=== PATIENT | female | born 1960 | race Caucasian/White ===

== ENCOUNTER 2017-07-27 22:54 | Inpatient (IN) | payer MEDICARE, OTHER ==
[~2017-07-27] VITALS: Ht 157.5 cm; Wt 51.2 kg
[~2017-07-27 22:54] MED LIST: ASPIRIN; BUSPIRONE; PEPCID
[2017-07-27] MEDS ORDERED: SODIUM CHLORIDE 0.9% 1,000ML IVBOLUS ONE (23:00)
[2017-07-27] MEDS ORDERED: LORazepam 2 MG/ML, 1ML IVPush ONE ×2 (23:00)
[2017-07-27] MEDS ORDERED: HALO0.5T PO (23:18)
[2017-07-27] MEDS ORDERED: FILTER 0.22 MICRON IV ONE (23:45)
[2017-07-28] MEDS ORDERED: PHENYTOIN SODIUM 1,000 MG in SODIUM CHLORIDE 0.9% 100 ML IV ONE
[2017-07-28] MEDS ORDERED: LORazepam 2 MG/ML, 1ML ONE (00:05)
[2017-07-28 00:09] LABS: HEMATOCRIT 37.6 % (34.6-47.8); HEMOGLOBIN 12.8 g/dL (11.7-16.4); WHITE BLOOD COUNT 8.1 x10^3/uL (3.4-10)
[2017-07-28 00:21] LABS: BLOOD UREA NITROGEN 17 mg/dL (7-18)
[2017-07-28] MEDS ORDERED: LORazepam 2 MG/ML, 1ML IVPush ONE ×2 (00:30→01:00)
[2017-07-28] MEDS ORDERED: LEVETIRACETAM 1,000 MG in SODIUM CHLORIDE 0.9% 100 ML IV ONE (01:00)
[2017-07-28] MEDS ORDERED: SODIUM CHLORIDE 0.9% 1,000ML IVBOLUS ONE ×3 (01:30→16:30)
[2017-07-28] MEDS ORDERED: LABETALOL 5MG/ML, 20ML IVPush PRN (02:00)
[2017-07-28] MEDS ORDERED: ENALAPRILAT 1.25 MG/ML, 2ML IVPush PRN (02:00)
[2017-07-28] MEDS ORDERED: morphine SULFATE 10 MG/ML, 1ML IVPush PRN (02:00)
[2017-07-28] MEDS ORDERED: ONDANSETRON 2MG/ML, 2ML IVPush PRN (02:00)
[2017-07-28] MEDS: D5%-0.45% NACL 1,000 ML IV SCH ×2 (02:11→15:03)
[2017-07-28] MEDS: LEVETIRACETAM 1,000 MG in SODIUM CHLORIDE 0.9% 100 ML IV SCH ×2 (02:26→08:24)
[2017-07-28 05:24] LABS: DAU SCREEN DISCLAIMER
[2017-07-28] MEDS: LORazepam 2 MG/ML, 1ML IVPush PRN ×2 (08:18→20:47)
[2017-07-28] MEDS: FAMOTIDINE 20 MG/2 ML IVPush SCH ×2 (09:15→20:57)
[2017-07-28 11:02] LABS: ASPARTATE AMINO TRANSFERASE 29 U/L (15-37); BLOOD UREA NITROGEN 13 mg/dL (7-18)
[2017-07-28] MEDS ORDERED: NOREPINEPHRINE 4 MG in SODIUM CHLORIDE 0.9% 246 ML IV PRN (13:08)
[2017-07-28] MEDS ORDERED: LIDOCAINE-MPF 1%, 2ML ENDO PRN (13:30)
[2017-07-28] MEDS ORDERED: SENNOSIDES 8.8 MG/5 ML ORAL SOL NG PRN (13:30)
[2017-07-28] MEDS ORDERED: SODIUM CHLORIDE 0.9% 1,000ML IV SCH (13:30)
[2017-07-28] MEDS ORDERED: PHARMACY MAY ADJ FOR RENAL FX MC SCH (13:30)
[2017-07-28] MEDS ORDERED: FAMOTIDINE 20 MG/2 ML IV SCH (13:30)
[2017-07-28] MEDS ORDERED: SENNA/DOCUSATE TABLET NG PRN (13:30)
[2017-07-28] MEDS ORDERED: BISACODYL 10 MG SUPP PR PRN (13:30)
[2017-07-28] MEDS ORDERED: LACTULOSE 20 GM/30 ML UDC NG PRN (13:30)
[2017-07-28] MEDS: ALBUTEROL/IPRATROPIUM 2.5MG/0.5MG, 3 ML INLINE SCH ×3 (14:40→21:30)
[2017-07-28 14:41] LABS: ABG COLLECTION SITE RIGHT BRACHIAL
[2017-07-28] MEDS: ENOXAPARIN 40 MG/0.4 ML SQ SCH (15:12)
[2017-07-28] MEDS ORDERED: SUCCINYLCHOLINE 20 MG/ML, 10ML ONE (18:00)
[2017-07-28] MEDS ORDERED: MIDAZOLAM 1 MG/ML, 5ML ONE (18:00)
[2017-07-28] MEDS ORDERED: PROPOFOL 10 MG/ML, 100ML IV ONE (18:00)
[2017-07-28] MEDS: PROPOFOL 100 ML IV PRN (18:00)
[2017-07-28 19:31] LABS: BLOOD UREA NITROGEN 4 mg/dL (7-18)
[2017-07-28] MEDS ORDERED: MAGNESIUM SULFATE 3 GM in SODIUM CHLORIDE 0.9% 100 ML IV ONE (20:00)
[2017-07-29] MEDS: D5%-0.45% NACL 1,000 ML IV SCH ×3 (00:39→17:15)
[2017-07-29] MEDS: ALBUTEROL/IPRATROPIUM 2.5MG/0.5MG, 3 ML INLINE SCH ×5 (01:30→18:34)
[2017-07-29 04:00] VITALS: BP 122/63
[2017-07-29 04:48] LABS: ABG COLLECTION SITE RIGHT RADIAL; COLLATERAL CIRCULATION TESTING NORMAL
[2017-07-29] MEDS: LEVETIRACETAM 1,000 MG in SODIUM CHLORIDE 0.9% 100 ML IV SCH ×2 (05:10→14:14)
[2017-07-29 05:14] LABS: HEMATOCRIT 36.5 % (34.6-47.8); HEMOGLOBIN 12.6 g/dL (11.7-16.4); WHITE BLOOD COUNT 11.2 x10^3/uL (3.4-10)
[2017-07-29 05:20] LABS: BLOOD UREA NITROGEN 3 mg/dL (7-18)
[2017-07-29 05:33] LABS: ASPARTATE AMINO TRANSFERASE 63 U/L (15-37)
[2017-07-29] MEDS: FAMOTIDINE 20 MG/2 ML IVPush SCH ×2 (08:41→21:00)
[2017-07-29] MEDS: POTASSIUM PHOSPHATE 44 MEQ in SODIUM CHLORIDE 0.9% 500 ML IV SCH ×2 (08:42→11:45)
[2017-07-29] MEDS ORDERED: ASPIRIN 300 MG SUPP PR SCH (09:00)
[2017-07-29] MEDS: FENTANYL PF 100 MCG/2ML IVPush PRN ×2 (09:02→18:21)
[2017-07-29] MEDS: PROPOFOL 100 ML IV PRN (11:45)
[2017-07-29] MEDS: ENOXAPARIN 40 MG/0.4 ML SQ SCH (14:14)
[2017-07-29] MEDS ORDERED: ATROPINE OPHTH SOLN 1%, 2ML PO PRN (21:30)
[2017-07-29] MEDS: LORazepam 10 MG in DEXTROSE 5% 245 ML IV SCH (22:16)
[2017-07-30] MEDS: LORazepam 10 MG in DEXTROSE 5% 245 ML IV SCH ×3 (01:58→12:30)
[2017-07-30] MEDS ORDERED: LEVETIRACETAM 1,000 MG in SODIUM CHLORIDE 0.9% 100 ML IV SCH (02:00)
== END 2017-07-30 13:31 | disposition expired | DRG 208 ==
LOC: ED 07-28 01:16 → EDIP 07-28 01:17 → CCU 07-28 08:08 → 3NW 07-30 01:30
PROVIDERS: ADMIT Internal Medicine; ATTEND Internal Medicine
PROC: 5A1945Z Respiratory Ventilation, 24-96 Consecutive Hours (ICD-10-PCS; principal; 2017-07-28)
PROC: 0BH17EZ Insertion of Endotracheal Airway into Trachea, Via Natural or Artificial Opening (ICD-10-PCS; 2017-07-28)
PROC: 05HM33Z Insertion of Infusion Device into Right Internal Jugular Vein, Percutaneous Approach (ICD-10-PCS; 2017-07-28)
PROC: B5131ZA Fluoroscopy of Right Jugular Veins using Low Osmolar Contrast, Guidance (ICD-10-PCS; 2017-07-28)
DX: J96.00 Acute respiratory failure, unspecified whether with hypoxia or hypercapnia (principal); I63.9 Cerebral infarction, unspecified; E43 Unspecified severe protein-calorie malnutrition; G93.40 Encephalopathy, unspecified; F02.81 Dementia in other diseases classified elsewhere, unspecified severity, with behavioral disturbance; G30.9 Alzheimer's disease, unspecified; G40.901 Epilepsy, unspecified, not intractable, with status epilepticus; Z51.5 Encounter for palliative care; Z68.20 Body mass index [BMI] 20.0-20.9, adult; D75.89 Other specified diseases of blood and blood-forming organs; F12.90 Cannabis use, unspecified, uncomplicated; F41.9 Anxiety disorder, unspecified; I65.21 Occlusion and stenosis of right carotid artery; Z66 Do not resuscitate; Z87.820 Personal history of traumatic brain injury
CPT/HCPCS: 36415; 36600; 70450; 70544; 70551; 71010; 80048; 80053; 80061; 80307; 82040; 82140; 82607; 82746; 82803; 83735; 84100; 84443; 84478; 85025; 87040; 87070; 87077; 87081; 87186; 87205; 93005; 94002; 94003; 94640; 95812; 96365; 96375; 96376; J1165; J1650; J1953; J2060; J2250; J2704; J3010; J3475; J7060; J7620; G0479; J0330; J2270; J7030; J7040; S0028